=== PATIENT | male | born 1975 | race Caucasian/White ===

== ENCOUNTER 2022-10-04 09:00 | Emergency (ER) | payer MEDICARE, MEDICAID, SELFPAY ==
[2022-10-04 09:07] VITALS: BP 100/62; PULSE 77; RESP 16; TEMP 36.7; O2SAT 97; BMI 39.4
--- NOTE | 2022-10-04 09:16 | RAD_ITS ---
STUDY: X-RAY CHEST REASON FOR EXAM: Male, 47 years old. Cough, dyspnea, wheezing TECHNIQUE: PA and lateral views of the chest. COMPARISON: None. FINDINGS: Scattered calcified granulomas. No acute infiltrate is seen. The lungs are clear and expanded. There is no demonstrated pleural abnormality. Normal size heart. Normal mediastinum and douglas. There is prominence of the pulmonary hilar arteries without peripheral pulmonary vascular congestion, suggesting pulmonary hypertension. Normal visualized aortic arch and descending thoracic aorta. There are diffuse degenerative changes of the visualized thoracic spine. Normal visualized ribs, clavicles, and shoulders. There is no demonstrated abnormality of the visualized soft tissue structures of the upper abdomen. RAD/Chest PA and Lateral IMPRESSION: Scattered calcified granulomas. Prominent central pulmonary arteries. Electronically Signed: Abdiaziz Camacho MD at 11:13 EDT ,
--- NOTE | 2022-10-04 09:17 | ED.VIS.DYS ---
HPI History of Present Illness Chief Complaint: Shortness of Breath Detail of Chief Complaint: Shortness of breath that started approximately 2 days ago and associated wi Informant: patient Onset/Context/Timing Onset: Days Context: gradual Timing: Continuous and Waxes and wanes Quality: Positive for Dyspnea on exertion; Negative for Orthopnea, PND or Wheezing Current Severity: Mild Maximum Severity: Moderate Worsened by: Exertion; Not Worsened By Lying flat or Coughing Relieved by: Nothing Associated Symptoms cough; Negative for rhinorrhea, post nasal drip, ear pain, fever, sore throat, subjective, chills or sweats Chest Pain: Positive for None Narrative Narrative: Patient is a 47-year-old male who resides at the [facility]. He has a past history of sciatica and mental illness. He states he is compliant with his medicine. He denies fever, chills night sweats. He denies rhinorrhea or postnasal drainage. He does endorse nasal congestion. He denies sore throat. He denies headache. He denies visual, ocular auditory symptoms. He denies neck pain or neck stiffness. He has a cough which is nonproductive. He reports dyspnea with activity as well as at rest. He denies GI symptoms. He denies history of VTE. He denies leg pain, swelling discoloration. He is unaware of anyone that is ill to his knowledge. He denies black or maroon-colored stool. PE Risk Factors: Negative for Cancer, OCP + Smoking + > 35, Prior DVT or PE, Recent immobilization, Recent surgery or Recent travel Prior similar symptoms: No Recent Illness/Hospitalization: No PFSH PFS Medical History (Updated 10/04/22 @ 10:[address] Duran Steiner MD) Sciatica Home Medications albuterol sulfate 90 mcg/actuation aerosol inhaler (Ventolin HFA) 2 puff inhalation Q4H PRN PRN Wheezing ##1 10/04/22 [Rx Last Taken Unknown] prednisone 20 mg tablet 60 mg (3 x 20 mg) PO DAILY #12 TABLETS 10/04/22 [Rx Last Taken Unknown] Allergy/AdvReac Type Severity Reaction Status Date / Time No Known Allergies Allergy Verified 10/04/22 09:07 Social History (Updated 10/04/22 @ 09:[address] Duran Steiner MD) household members: none housing: other details: [facility] Smoking Status: Current every day smoker tobacco type: cigarettes substance use type: does not use ROS ROS ED Constitutional Constitutional ED: Denies chills, fever(s), sweats or weight loss Eyes Eyes: Denies blurry vision, change in vision or diplopia ENT ENT ED: Denies ear pain, rhinorrhea or sore throat Cardiovascular Cardiovascular: Denies chest pain, orthopnea, palpitations, paroxysmal nocturnal dyspnea or racing heartbeat Respiratory/Chest Respiratory/Chest: Reports cough, dyspnea and dyspnea on exertion; Denies orthopnea, paroxysmal nocturnal dyspnea or sputum Gastrointestinal Gastrointestinal: Denies abdominal pain, constipation, diarrhea, melena, nausea or vomiting Genitourinary Genitourinary ED: Denies dysuria, hematuria or urinary frequency Musculoskeletal Musculoskeletal: Denies arthralgias, back pain, myalgias or neck pain Neurologic Neurologic: Denies headache(s), paresthesias or weakness Psychiatric Psychiatric: Denies anxiety Endocrine Endocrinology: Denies cold intolerance or heat intolerance Hematologic/Lymphatic Hematologic/Lymphatic: Denies easy bleeding or easy bruising EXAM Physical Exam Const Vital Signs: 10/04/22 09:07 10/04/22 09:53 10/04/22 10:01 Temperature 98.1 F Temperature Source Temporal Pulse Rate 77 93 Respiratory Rate 16 20 H Respiratory Effort Normal Non-Labored Respiratory Pattern Normal Blood Pressure 100/62 Blood Pressure Mean 74 Pulse Ox 97 Oxygen Delivery Method Room Air Positive well nourished, well developed and obese General Appearance ED: well developed and NAD; Negative for pallor Nutritional Appearance: obese HEENT Reports moist mucous membranes and other Head is normocephalic. Ears are normal. atraumatic and other Eyes PERRL and EOMs intact bilaterally General Eye ED: Negative for pale conjunctiva or scleral icterus Neck no lymphadenopathy, supple, no meningeal signs and no JVD Resp normal respiratory effort and No clear to auscultation bilaterally Auscultation: wheezes expiratory wheezes and throughout Cardio regular rate, regular rhythm, S1 normal heart sound, S2 normal heart sound and no murmurs GI non-tender, non-distended and no masses Extremity normal to inspection Extremity Narrative: There is no asymmetry, swelling, discoloration, leg vein distention, palpable cords or tenderness along the distribution of the deep venous system. Neuro oriented x3, CN's II-XII intact bilaterally and no sensory deficits noted Sulema Coma Scale: document GCS findings Spontaneous Obeys Commands Oriented 15 Sensorium / Orientation: alert Speech: speech normal Motor Exam: strength 5/5 throughout Psych mental status grossly normal Skin no wounds and skin turgor normal General Skin Exam: Negative for jaundice or pallor Lesions: no lesions Rashes: no rashes MDM MDM MDM Narrative Medical decision making narrative: WePatient presents with respiratory type symptoms. He does have prior history of pneumonia. Will obtain chest x-ray since his lungs are not clear to auscultation. He was treated with albuterol. Vital signs are unremarkable. Patient is PERC negative for PE. History is not consistent with cardiac. Nurse informed that he is complaining of right wrist pain secondary to fall. Patient was reexamined. The right wrist is not swollen compared to the left. There is no bruising or or ecchymosis noted. There is no point tenderness over the distal radius, ulna. There is no tenderness over the anatomical snuffbox or axial load of thumb. Median, radial and ulnar function intact. There is no pain to palpation over the phalanges, metacarpal bones or carpal bones. Patient has full active range of motion i.e. supination, pronation as well as flexion extension. Patient was informed in my opinion he does not require imaging. Patient was reassessed at 1020 after his aerosol treatments. He is moving more air. It has improved but has not resolved. 60 mg of prednisone was ordered since he is still wheezing. Radiography Chest X-Ray - ED: 2 View and Read by ED Physician (2 view x-ray independent reviewed interpreted by me at 1049. There is minimal chronic changes. Is no infiltrate, effusion or pneumothorax. Cardiac silhouette size unremarkable. Perihilar regions unremarkable. 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 Discharge Plan Triage Chief Complaint: Shortness of Breath ED Provider: Duran Steiner Dx/Rx/DC Orders Clinical Impression: Acute bronchospasm, Acute bronchitis, Right wrist pain Instructions: Acute Bronchitis Prescriptions: New prednisone 20 mg tablet 60 mg PO DAILY Qty: 12 0RF albuterol sulfate [Ventolin HFA] 90 mcg/actuation HFA aerosol inhaler 2 puff inhalation Q4H PRN PRN (Reason: Wheezing) Qty: 1 0RF Primary Care Provider: Care Physician,No Primary Referrals: Kathrin Jay [Non-Staff] - 3-5 Days if not improving Care Physician,No Primary [Primary Care Provider] - Activity Restrictions/Additional Instructions: It is in your best interest to quit smoking. Disposition Disposition: Home, Self Care
[2022-10-04 10:01] VITALS: PULSE 93; RESP 20
[2022-10-04] MEDS: Albuterol 2.5 MG/3 ML VIAL.NEB. INHALATION ×3 (10:01)
[2022-10-04] MEDS: predniSONE 20 MG Tablet 60 MG PO (10:30)
--- NOTE | 2022-10-04 10:53 | CM.ED ---
Social Work Note Referral Source: case find Referral Reason: no PCP/ resources SW met with patient and introduced herself and role as [facility] [employer]. Patient lying on hospital bed and agreeable to speak with SW. SW inquired about patient's insurance and current PCP. Patient verified insurance and reports no current PCP. SW provided patient with a list of local PCPs in network with patient's insurance and accepting new patients. SW then inquired about patient's current living arrangements and connection to community resources. Patient reports he is currently staying at [facility] [employer] and working with [employer] for housing support. SW reviewed [facility] resource list. Patient was receptive towards information provided and voiced no other needs. SW remains available if needs arise. Jacque Matias ELECTRIC ACCOUNTING MACHINE OPERATOR, [employer]
== END 2022-10-04 10:56 | disposition home or self-care (01) ==
PROVIDERS: Emergency Provider Emergency Medicine; Visit Provider Emergency Medicine
DX: J20.9 Acute bronchitis, unspecified (principal); M25.531 Pain in right wrist; F17.210 Nicotine dependence, cigarettes, uncomplicated; E66.9 Obesity, unspecified
CPT/HCPCS: 71046; 94640; 99284